=== PATIENT | male | born 1995 | race African-American/Black ===

== ENCOUNTER 2018-09-27 13:07 | Emergency (ER) | payer OTHER ==
--- NOTE | 2018-09-27 14:11 | RAD REPORT ---
EXAM DESCRIPTION: RAD - Hand Right 3 View - 09/27/2018 2:01 pm CLINICAL HISTORY: Right hand pain status post injury FINDINGS: 3 millimeter bony density abuts the terminal tuft of the fourth phalanx. This may represen t an acute avulsion fracture. Clinical correlation is needed to make sure the patient has point tende rness in this region to suggest this. No dislocation noted
--- NOTE | 2018-09-27 14:36 | EDPHYS ---
Physician Documentation [facility] [place] Name: Vicente Cedeno Age: 23 yrs Sex: Male : 1995 Arrival Date: 09/27/2018 Time: 13:12 Bed 9 Private MD: None, None ED Physician Burak Boyd HPI: 09/27 14:29 This 23 yrs old Black Male presents to ER via Ambulatory with complaints of Finger kb Injury. 14:32 The patient or guardian reports injury, pain, swelling, tenderness, skin tear. The kb complaints affect the dorsal aspect of distal phalanx of right ring finger, palmar aspect of distal phalanx of right ring finger and palmar aspect of middle phalanx of right ring finger. Context: The problem was sustained at work, resulted from getting finger slammed in gate. Onset: The symptoms/episode began/occurred yesterday. Modifying factors: The symptoms are alleviated by nothing, the symptoms are aggravated by nothing. Associated signs and symptoms: The patient has no apparent associated signs or symptoms. Severity of symptoms: At their worst the symptoms were mild, moderate, in the emergency department the symptoms are unchanged. The patient has not experienced similar symptoms in the past. The patient has not recently seen a physician. Historical: - Allergies: 13:22 No Known Allergies; tw2 - Home Meds: 13:22 None [Active]; tw2 - PMHx: 13:22 None; tw2 - PSHx: 13:22 None; tw2 - Immunization history:: Last tetanus immunization: up to date. - Social history:: Smoking status: . - Ebola Screening: : Patient negative for fever greater than or equal to 101.5 degrees Fahrenheit, and additional compatible Ebola Virus Disease symptoms. ROS: 14:32 Constitutional: Negative for fever, chills, and weight loss, Cardiovascular: Negative kb for chest pain, palpitations, and edema, Respiratory: Negative for shortness of breath, cough, wheezing, and pleuritic chest pain, Abdomen/GI: Negative for abdominal pain, nausea, vomiting, diarrhea, and constipation, Neuro: Negative for headache, weakness, numbness, tingling, and seizure. 14:32 MS/extremity: Positive for pain, swelling, tenderness, of the right ring finger. 14:32 Skin: Positive for swelling, of the palmar aspect of middle phalanx of right ring finger and palmar aspect of distal phalanx of right ring finger and dorsal aspect of distal phalanx of right ring finger, skin tears. Exam: 14:32 Constitutional: This is a well developed, well nourished patient who is awake, alert, kb and in no acute distress. Head/Face: Normocephalic, atraumatic. Chest/axilla: Normal chest wall appearance and motion. Nontender with no deformity. No lesions are appreciated. Cardiovascular: Regular rate and rhythm with a normal S1 and S2. No gallops, murmurs, or rubs. Normal PMI, no JVD. No pulse deficits. Respiratory: Lungs have equal breath sounds bilaterally, clear to auscultation and percussion. No rales, rhonchi or wheezes noted. No increased work of breathing, no retractions or nasal flaring. Abdomen/GI: Soft, non-tender, with normal bowel sounds. No distension or tympany. No guarding or rebound. No evidence of tenderness throughout. Neuro: Awake and alert, GCS 15, oriented to person, place, time, and situation. Cranial nerves II-XII grossly intact. Motor strength 5/5 in all extremities. Sensory grossly intact. Cerebellar exam normal. Normal gait. 14:32 Musculoskeletal/extremity: Extremities: grossly normal except: noted in the right ring finger: pain, swelling, tenderness, ROM: limited active range of motion due to pain, Circulation is intact in all extremities. 14:32 Skin: injury, skin tear to right ring finger. Vital Signs: 13:21 BP 144 / 77; Pulse 77; Resp 17; Temp 98.5(TE); Pulse Ox 99% on R/A; Weight 106.59 kg tw2 (R); Height 5 ft. 6 in. (167.64 cm); Pain 7/10; 13:21 Body Mass Index 37.93 (106.59 kg, 167.64 cm) tw2 MDM: 13:30 Patient medically screened. kb 14:31 Data reviewed: vital signs, nurses notes. Data interpreted: Pulse oximetry: on room air kb is 99 %. Interpretation: normal. Counseling: I had a detailed discussion with the patient and/or guardian regarding: the historical points, exam findings, and any diagnostic results supporting the discharge/admit diagnosis, radiology results, the need for outpatient follow up, a hand specialist, to return to the emergency department if symptoms worsen or persist or if there are any questions or concerns that arise at home. 09/27 13:41 Order name: Hand Right 3 View XRAY; Complete Time: 14:12 kb 09/27 14:23 Order name: Finger Splint; Complete Time: 14:51 kb Administered Medications: 14:31 Drug: KeFLEX 500 mg Route: PO; ss 14:51 Follow up: Response: No adverse reaction; Medication administered at discharge. ss Disposition: 15:37 Co-signature as Attending Physician, Burak Boyd MD I agree with the assessment and sammie plan of care. Disposition: 09/27/18 14:36 Discharged to Home. Impression: Skin tear of right ring finger, avulsion fracture of proximal phalanx of right ring finger. - Condition is Stable. - Discharge Instructions: Avulsion Fracture of the Hand, Skin Tear Care, [id number]. - Prescriptions for Keflex 500 mg Oral Capsule - take 1 capsule by ORAL route every 8 hours for 10 days; 30 capsule. - Medication Reconciliation Form, Thank You Letter, Antibiotic Education, Prescription Opioid Use, Work release form form. - Follow up: Emergency Department; When: As needed; Reason: Worsening of condition. Follow up: Jaycob Craven MD; When: 2 - 3 days; Reason: Recheck today's complaints. Signatures: Dispatcher [employer] EDMD Herminia Benitez, TOUR COORDINATOR-C TOUR COORDINATOR-Ckb Burak Boyd MD MD cha Smirch, Shelby, RN RN Xochitl Stacy RN RN tw2 Corrections: (The following items were deleted from the chart) 15:03 14:36 09/27/2018 14:36 Discharged to Home. Impression: Skin tear of right ring finger; ss avulsion fracture of proximal phalanx of right ring finger. Condition is Stable. Forms are Work release form, Medication Reconciliation Form, Thank You Letter, Antibiotic Education, Prescription Opioid Use. Follow up: Emergency Department; When: As needed; Reason: Worsening of condition. Follow up: Jaycob Craven; When: 2 - 3 days; Reason: Recheck today's complaints. kb
--- NOTE | 2018-09-27 14:36 | ER ---
Nurse's Notes [facility] Name: Vicente Cedeno Age: 23 yrs Sex: Male : 1995 Arrival Date: 09/27/2018 Time: 13:12 Bed 9 Private MD: None, None Diagnosis: Skin tear of right ring finger;avulsion fracture of proximal phalanx of right ring finger Presentation: 09/27 13:19 Presenting complaint: Patient states: i smashed my finger in a gate yesterday, RIGHT tw2 hand ring finger, it swollen, the nail is still in place. Transition of care: patient was not received from another setting of care. Onset of symptoms was September 27, 2018. Risk Assessment: Do you want to hurt yourself or someone else? Patient reports no desire to harm self or others. Initial Sepsis Screen: Does the patient meet any 2 criteria? No. Patient's initial sepsis screen is negative. Does the patient have a suspected source of infection? No. Patient's initial sepsis screen is negative. Care prior to arrival: None. 13:19 Method Of Arrival: Ambulatory tw2 13:19 Acuity: AARON 4 tw2 Triage Assessment: 13:20 General: Appears in no apparent distress. Behavior is calm, cooperative, appropriate tw2 for age. Pain: Complains of pain in dorsal aspect of distal phalanx of right ring finger, dorsal aspect of middle phalanx of right ring finger and dorsal aspect of proximal phalanx of right ring finger. Musculoskeletal: Circulation, motion, and sensation intact. Range of motion: intact in all extremities, Reports swelling in right ring finger (4th finger). Injury Description: smashed finger in gate. Historical: - Allergies: 13:22 No Known Allergies; tw2 - Home Meds: 13:22 None [Active]; tw2 - PMHx: 13:22 None; tw2 - PSHx: 13:22 None; tw2 - Immunization history:: Last tetanus immunization: up to date. - Social history:: Smoking status: . - Ebola Screening: : Patient negative for fever greater than or equal to 101.5 degrees Fahrenheit, and additional compatible Ebola Virus Disease symptoms. Screenin:25 Abuse screen: Denies threats or abuse. Nutritional screening: No deficits noted. tw2 Tuberculosis screening: No symptoms or risk factors identified. Fall Risk None identified. Assessment: 13:25 General: Appears in no apparent distress. Behavior is calm, cooperative, appropriate tw2 for age. Vital Signs: 13:21 BP 144 / 77; Pulse 77; Resp 17; Temp 98.5(TE); Pulse Ox 99% on R/A; Weight 106.59 kg tw2 (R); Height 5 ft. 6 in. (167.64 cm); Pain 7/10; 13:21 Body Mass Index 37.93 (106.59 kg, 167.64 cm) tw2 ED Course: 13:12 Patient arrived in ED. dp 13:13 None, None is Private Physician. dp 13:20 Triage completed. tw2 13:20 Arm band placed on. tw2 13:25 Xochitl Juarez, MIKE is Primary Nurse. tw2 13:25 Bed in low position. Call light in reach. Adult w/ patient. tw2 13:29 Herm[facility] Benitez FNP-C [facility]. kb 13:29 Burak Boyd MD is Attending Physician. kb 13:58 X-ray completed. Portable x-ray completed in exam room. jr1 14:02 Hand Right 3 View XRAY In Process Unspecified. EDMS 14:35 Jaycob Craven MD is Referral Physician. kb 14:52 No provider procedures requiring assistance completed. Patient did not have IV access ss during this emergency room visit. Aluminum finger splint applied to dorsal aspect of distal phalanx of left ring finger and palmar aspect of distal phalanx of left ring finger. Wound care: to smash injury. Superficial laceration noted. located on dorsal aspect of distal phalanx of left ring finger and palmar aspect of middle phalanx of left ring finger was cleaned with Hibiclens, dressed with Neosporin, 4X4s, aluminum finger splint . Administered Medications: 14:31 Drug: KeFLEX 500 mg Route: PO; ss 14:51 Follow up: Response: No adverse reaction; Medication administered at discharge. ss Outcome: 14:36 Discharge ordered by . kb 14:52 Discharged to home ambulatory. ss 14:52 Condition: good 14:52 Discharge instructions given to patient, family, Instructed on discharge instructions, follow up and referral plans. medication usage, Demonstrated understanding of instructions, follow-up care, medications, Prescriptions given X 1. 15:03 Patient left the ED. ss Signatures: Dispatcher [employer] EDMS Herminia Benitez, DOCUMENT DESIGN SPECIALIST-C DOCUMENT DESIGN SPECIALIST-Ramonita Soria jr1 Amna Das, RN RN ss Xochitl Juarez RN RN tw2 Agustin Kolb dp
[2018-09-27] MEDS ORDERED: CEPHALEXIN 250 MG CAP ONE (14:40)
== END 2018-09-27 15:03 | disposition home or self-care (01) ==
LOC: ER 13:07
DX: S62.614A Displaced fracture of proximal phalanx of right ring finger, initial encounter for closed fracture (principal); S61.214A Laceration without foreign body of right ring finger without damage to nail, initial encounter; W23.0XXA Caught, crushed, jammed, or pinched between moving objects, initial encounter; Y93.9 Activity, unspecified; Y92.89 Other specified places as the place of occurrence of the external cause; Y99.8 Other external cause status
CPT/HCPCS: 99284

== ENCOUNTER 2019-09-14 | Emergency (ER) | payer OTHER, SELFPAY ==
--- NOTE | 2019-09-14 15:39 | ER ---
Nurse's Notes [facility] Name: Vicente Cedeno Age: 24 yrs Sex: Male : 1995 Arrival Date: 09/14/2019 Time: 14:40 Bed 26 Private MD: Diagnosis: Acute upper respiratory infection, unspecified Presentation: 09/13 14:52 Chief complaint: Patient states: Sore throat, cough with nausea for 4 days. Fever 99.9 ll1 at home. + decreased appetite. Co-worker was sick, then he got sick. Coronavirus screen: The patient has NOT traveled to a country currently being monitored by the [facility] within the last 14 days. Proceed with normal triage procedures. Ebola Screen: Patient denies travel to an Ebola-affected area in the 21 days before illness onset. Initial Sepsis Screen: Does the patient meet any 2 criteria? No. Patient's initial sepsis screen is negative. Risk Assessment: Do you want to hurt yourself or someone else? Patient reports no desire to harm self or others. 14:52 Method Of Arrival: Ambulatory ll1 14:52 Acuity: AARON 4 ll1 15:00 Initial Sepsis Screen: Does the patient have a suspected source of infection? No. ls4 Patient's initial sepsis screen is negative. Triage Assessment: 15:00 General: Appears in no apparent distress. Behavior is calm, cooperative. ls4 Cardiovascular: No deficits noted. Reports. 15:00 Respiratory: No deficits noted. GI: No deficits noted. Derm: No deficits noted. No ls4 signs and/or symptoms reported regarding the dermatologic system. Musculoskeletal: No deficits noted. No signs and/or symptoms reported regarding the musculoskeletal system. Historical: - Allergies: 14:55 No Known Allergies; ll1 - PMHx: 14:55 None; ll1 - PSHx: 14:55 None; ll1 - Immunization history:: Flu vaccine status is unknown. - Social history:: Patient/guardian denies using alcohol, street drugs, tobacco products, Smoking status: Patient denies any tobacco usage or history of. Screenin:00 Abuse screen: Denies threats or abuse. Denies injuries from another. Nutritional ls4 screening: No deficits noted. Tuberculosis screening: No symptoms or risk factors identified. Fall Risk None identified. Assessment: 15:00 General: Appears in no apparent distress. comfortable, Behavior is calm, cooperative. ls4 15:00 Pain: Denies pain. Neuro: No deficits noted. Respiratory: No deficits noted. GI: No ls4 deficits noted. Abdomen is flat, distended. : No deficits noted. Derm: No deficits noted. No signs and/or symptoms reported regarding the dermatologic system. Musculoskeletal: No deficits noted. No signs and/or symptoms reported regarding the musculoskeletal system. Vital Signs: 14:50 BP 128 / 80; Pulse 78; Resp 14; Temp 98.0; Pulse Ox 99% on R/A; Pain 0/10; ls4 14:52 BP 139 / 86; Pulse 84; Resp 18; Temp 98.8; Pulse Ox 99% ; Weight 102.06 kg; Height 5 ll1 ft. 6 in. (167.64 cm); Pain 0/10; 14:52 Body Mass Index 36.32 (102.06 kg, 167.64 cm) ll1 ED Course: 14:40 Patient arrived in ED. mr 14:54 Triage completed. ll1 14:55 Arm band placed on. ll1 14:56 Herminia Benitez FNP-C is [facility]. kb 14:56 Delta Ansari MD is Attending Physician. kb 15:00 Patient has correct armband on for positive identification. Bed in low position. Call ls4 light in reach. Side rails up X 1. mask on patient . 15:00 No provider procedures requiring assistance completed. Patient did not have IV access ls4 during this emergency room visit. 15:05 Clarice Pacheco, RN is Primary Nurse. ls4 Administered Medications: No medications were administered Outcome: 14:55 Discharged to home ambulatory, with family. ls4 14:55 Condition: stable 14:55 Discharge instructions given to patient, family, Instructed on discharge instructions, follow up and referral plans. medication usage, Demonstrated understanding of instructions, follow-up care, medications. 15:38 Discharge ordered by MD. kb 15:58 Patient left the ED. ls4 Signatures: Herminia Benitez FNP-C FNP-Raj AyalaaMeggan mr Clarice Pacheco, RN RN ls4 Cami Moralez RN RN ll1 Corrections: (The following items were deleted from the chart) 18:15 18:01 General: Appears in no apparent distress. Behavior is calm, cooperative, ls4 ls4 18:15 18:01 GI: Reports no symptoms ls4 ls4 18:15 18:01 Neuro: No deficits noted. ls4 ls4 18:15 18:01 Cardiovascular: No deficits noted. Reports ls4 ls4 18:15 18:01 Respiratory: No deficits noted. Reports ls4 ls4 18:15 18:01 : No deficits noted. No signs and/or symptoms were reported regarding the ls4 genitourinary system. ls4 18: 18:01 Derm: No deficits noted. No signs and/or symptoms reported regarding the ls4 dermatologic system. ls4 18:15 18:01 Musculoskeletal: No deficits noted. No signs and/or symptoms reported regarding ls4 the musculoskeletal system. ls4
--- NOTE | 2019-09-14 15:39 | EDPHYS ---
Physician Documentation [facility] Name: Vicente Cedeno Age: 24 yrs Sex: Male : 1995 Arrival Date: 09/14/2019 Time: 14:40 Bed 26 Private MD: ED Physician Delta Ansari HPI: 09/13 15:54 This 24 yrs old Black Male presents to ER via Ambulatory with complaints of Nausea, kb Fever. 15:55 The patient or guardian reports cough, that is intermittent, described as mild, with no kb sputum, flu symptoms, myalgias. Onset: The symptoms/episode began/occurred last week. Severity of symptoms: At their worst the symptoms were mild, moderate, in the emergency department the symptoms are unchanged. Modifying factors: The symptoms are alleviated by nothing, the symptoms are aggravated by nothing. Associated signs and symptoms: Pertinent positives: sore throat, Pertinent negatives: chest pain, diarrhea, ear ache, fever, nausea, rhinorrhea, vomiting. The patient has not experienced similar symptoms in the past. The patient has not recently seen a physician. Pt reports cough, nasal congestion, sore throat for a week. . Historical: - Allergies: 14:55 No Known Allergies; ll1 - PMHx: 14:55 None; ll1 - PSHx: 14:55 None; ll1 - Immunization history:: Flu vaccine status is unknown. - Social history:: Patient/guardian denies using alcohol, street drugs, tobacco products, Smoking status: Patient denies any tobacco usage or history of. ROS: 15:55 Neck: Negative for injury, pain, and swelling, Cardiovascular: Negative for chest pain, kb palpitations, and edema, Abdomen/GI: Negative for abdominal pain, nausea, vomiting, diarrhea, and constipation, Back: Negative for injury and pain, MS/Extremity: Negative for injury and deformity, Skin: Negative for injury, rash, and discoloration, Neuro: Negative for headache, weakness, numbness, tingling, and seizure. 15:55 Constitutional: Positive for fever. 15:55 ENT: Positive for sinus congestion, sore throat. 15:55 Respiratory: Positive for cough, Negative for dyspnea on exertion, hemoptysis, orthopnea, pleurisy, shortness of breath, sputum production, wheezing. Exam: 16:00 Constitutional: This is a well developed, well nourished patient who is awake, alert, kb and in no acute distress. Head/Face: Normocephalic, atraumatic. ENT: Nares patent. No nasal discharge, no septal abnormalities noted. Tympanic membranes are normal and external auditory canals are clear. Oropharynx with no redness, swelling, or masses, exudates, or evidence of obstruction, uvula midline. Mucous membranes moist. Neck: Trachea midline, no thyromegaly or masses palpated, and no cervical lymphadenopathy. Supple, full range of motion without nuchal rigidity, or vertebral point tenderness. No Meningismus. Chest/axilla: Normal chest wall appearance and motion. Nontender with no deformity. No lesions are appreciated. Cardiovascular: Regular rate and rhythm with a normal S1 and S2. No gallops, murmurs, or rubs. Normal PMI, no JVD. No pulse deficits. Respiratory: Lungs have equal breath sounds bilaterally, clear to auscultation and percussion. No rales, rhonchi or wheezes noted. No increased work of breathing, no retractions or nasal flaring. Abdomen/GI: Soft, non-tender, with normal bowel sounds. No distension or tympany. No guarding or rebound. No evidence of tenderness throughout. Skin: Warm, dry with normal turgor. Normal color with no rashes, no lesions, and no evidence of cellulitis. MS/ Extremity: Pulses equal, no cyanosis. Neurovascular intact. Full, normal range of motion. Neuro: Awake and alert, GCS 15, oriented to person, place, time, and situation. Cranial nerves II-XII grossly intact. Motor strength 5/5 in all extremities. Sensory grossly intact. Cerebellar exam normal. Normal gait. Vital Signs: 14:50 BP 128 / 80; Pulse 78; Resp 14; Temp 98.0; Pulse Ox 99% on R/A; Pain 0/10; ls4 14:52 BP 139 / 86; Pulse 84; Resp 18; Temp 98.8; Pulse Ox 99% ; Weight 102.06 kg; Height 5 ll1 ft. 6 in. (167.64 cm); Pain 0/10; 14:52 Body Mass Index 36.32 (102.06 kg, 167.64 cm) ll1 MDM: 14:56 Patient medically screened. kb 15:38 Data reviewed: vital signs, nurses notes. Data interpreted: Pulse oximetry: on room air kb is 99 %. Interpretation: normal. Counseling: I had a detailed discussion with the patient and/or guardian regarding: the historical points, exam findings, and any diagnostic results supporting the discharge/admit diagnosis, the need for outpatient follow up, a family practitioner, to return to the emergency department if symptoms worsen or persist or if there are any questions or concerns that arise at home. Administered Medications: No medications were administered Disposition: 18:32 Co-signature as Attending Physician, Delta Ansari MD Signature for administrative ps1 purposes. Did not see or evaluate patient. . Disposition: 09/14/19 15:38 Discharged to Home. Impression: Acute upper respiratory infection, unspecified. - Condition is Stable. - Discharge Instructions: Viral Respiratory Infection, [id number]. - Medication Reconciliation Form, Thank You Letter, Antibiotic Education, Prescription Opioid Use, Work release form form. - Follow up: Emergency Department; When: As needed; Reason: Worsening of condition. Follow up: Private Physician; When: 2 - 3 days; Reason: Recheck today's complaints, Continuance of care, Re-evaluation by your physician. Signatures: Herminia Benitez, REGISTERED NURSE AMBULATORY-C REGISTERED NURSE AMBULATORY-Delta Ahmadi MD MD ps1 Clarice Pacheco, RN RN ls4 Cami Moralez RN RN ll1 Corrections: (The following items were deleted from the chart) 15:58 15:38 09/14/2019 15:38 Discharged to Home. Impression: Acute upper respiratory ls4 infection, unspecified. Condition is Stable. Forms are Work release form, Medication Reconciliation Form, Thank You Letter, Antibiotic Education, Prescription Opioid Use. Follow up: Emergency Department; When: As needed; Reason: Worsening of condition. Follow up: Private Physician; When: 2 - 3 days; Reason: Recheck today's complaints, Continuance of care, Re-evaluation by your physician. kb
== END 2019-09-14 15:58 | disposition home or self-care (01) ==
DX: J06.9 Acute upper respiratory infection, unspecified (principal)
CPT/HCPCS: 99281